=== PATIENT | female | born 1985 | race Caucasian/White ===

== ENCOUNTER 2019-01-24 21:34 | Emergency (ER) | payer SELFPAY ==
--- NOTE | 2019-01-24 22:15 | NUR ---
CALED 3 TIMES NO ANSWER. LWBT
== END 2019-01-24 22:46 | disposition left against medical advice (07) ==
LOC: ER 21:34
DX: Z53.21 Procedure and treatment not carried out due to patient leaving prior to being seen by health care provider (principal)